=== PATIENT | male | born 1930 | race Asian ===

== ENCOUNTER 2019-03-13 02:20 | Inpatient (IN) | payer MEDICARE ==
[~2019-03-13] VITALS: Ht 172.7 cm; Wt 62.3 kg
[~2019-03-13 02:20] MED LIST: ACARBOSE25 MG PO; GLIPIZIDE5 MG PO
[2019-03-13 02:25] VITALS: Ht 172.7 cm; Wt 62.3 kg
[2019-03-13 02:51] LABS: PLATELET COUNT 132 x10^3mcL (130-400)
[2019-03-13 02:53] LABS: BASOPHIL % 7.2 % (0-2)
[2019-03-13 03:00] LABS: CALCIUM 8.9 mg/dL (8.5-10.1); CARBON DIOXIDE 28.5 mmol/L (21-32); CHLORIDE SERUM 104 mmol/L (98-107); CREATININE SERUM 2.2 mg/dL (0.7-1.3); GLUCOSE SERUM 159 mg/dL (74-106); POTASSIUM SERUM 4.4 mmol/L (3.5-5.1); SODIUM SERUM 141 mmol/L (136-145)
[2019-03-13 03:05] LABS: ALBUMIN 3.9 g/dL (3.4-5.0); ALKALINE PHOSPHATASE 154 U/L (46-116); ALT/SGPT 10 U/L (16-63); AST/SGOT 22 U/L (15-37); BILIRUBIN TOTAL 1.01 mg/dL (0.20-1.00); TOTAL PROTEIN, SERUM 7.9 g/dL (6.4-8.2)
[2019-03-13 03:16] LABS: CK-MB 1.4 ng/mL (0-3.6)
[2019-03-13 04:05] LABS: microscopic required? YES; urine erythrocyte TRACE (NEGATIVE)
[2019-03-13 05:20] LABS: CHOLESTEROL/HDL RATIO 2.2
[2019-03-13 06:04] VITALS: BP 121/51
[2019-03-13 06:19] VITALS: BP 121/51
[2019-03-13 08:42] VITALS: BP 121/52
[2019-03-13 12:35] VITALS: BP 129/60
[2019-03-13 16:47] VITALS: BP 141/69
[2019-03-13 21:16] VITALS: BP 116/49
[2019-03-14 05:00] VITALS: BP 123/58
[2019-03-14 06:15] LABS: CALCIUM 8.5 mg/dL (8.5-10.1); CARBON DIOXIDE 30.5 mmol/L (21-32); CHLORIDE SERUM 102 mmol/L (98-107); GLUCOSE SERUM 148 mg/dL (74-106); MAGNESIUM 2.3 mg/dL (1.8-2.4); PHOSPHOROUS 3.5 mg/dL (2.5-4.9); POTASSIUM SERUM 4.2 mmol/L (3.5-5.1); SODIUM SERUM 139 mmol/L (136-145)
[2019-03-14 06:28] LABS: AMPHETAMINE QUAL UR NONE DETECTED (See below)
[2019-03-14 06:36] LABS: BASOPHIL % 0 % (0-2); PLATELET COUNT 115 x10^3mcL (130-400); RED CELL DISTRIBUTION WIDTH 15.9 % (11.5-14.5)
[2019-03-14 08:29] VITALS: BP 112/51
[2019-03-14] MEDS ORDERED: LEVAQUIN750 MG IV (09:50)
[2019-03-14 12:13] VITALS: BP 115/55; BP 115/555
[2019-03-14 16:31] VITALS: BP 126/63
[2019-03-14 20:18] VITALS: BP 130/57
[2019-03-14 20:45] VITALS: BP 130/57
== END 2019-03-14 21:46 | disposition short-term general hospital (02) | DRG 871 ==
LOC: ED 02:20 → DU 04:28
PROVIDERS: Emergency Medicine; Internal Medicine; ADMIT General Practice
DX: A41.9 Sepsis, unspecified organism (principal); J18.9 Pneumonia, unspecified organism; N17.0 Acute kidney failure with tubular necrosis; J96.00 Acute respiratory failure, unspecified whether with hypoxia or hypercapnia; R65.21 Severe sepsis with septic shock; I13.0 Hypertensive heart and chronic kidney disease with heart failure and stage 1 through stage 4 chronic kidney disease, or unspecified chronic kidney disease; E11.22 Type 2 diabetes mellitus with diabetic chronic kidney disease; N18.9 Chronic kidney disease, unspecified; E11.65 Type 2 diabetes mellitus with hyperglycemia; I50.9 Heart failure, unspecified; J45.909 Unspecified asthma, uncomplicated; Z68.23 Body mass index [BMI] 23.0-23.9, adult; Z87.891 Personal history of nicotine dependence
CPT/HCPCS: 82962; 83880; 87804; G0378; J1815; J1940; J1956; J2543; J2920; J7030; J7620; Q0092